=== PATIENT | male | born 1960 | race Caucasian/White ===

== ENCOUNTER 2021-05-02 03:49 | Emergency (ER) | payer OTHER ==
[~2021-05-02] VITALS: Ht 170.2 cm; Wt 86.4 kg
[2021-05-02 03:53] VITALS: TEMP 98
[2021-05-02 04:02] LABS: HEMATOCRIT 47.7 % (42.0-52.0); HEMOGLOBIN 16.9 g/dl (13.5-18.0); MEAN CELL VOLUME 90 fl (80.0-100.0); MEAN CORPUSCULAR HEMOGLOBIN 32 pg (27.0-31.0); MEAN CORPUSCULAR HGB CONC 35 g/dl (33.0-37.0); MEAN PLATELET VOLUME 11.3 fl (7.4-10.4); PLATELET COUNT 272 K/mm3 (130-400); RED BLOOD COUNT 5.31 M/mm3 (4.20-5.60)
[2021-05-02 04:18] LABS: PARTIAL THROMBOPLASTIN TIME 29.5 SECONDS (26.0-37.0)
[2021-05-02 04:20] LABS: INR 1.1 (0.8-3.0); PROTHROMBIN TIME 12.3 SECONDS (9.7-12.8)
[2021-05-02 04:23] LABS: BILIRUBIN,TOTAL 0.4 mg/dL (0.2-1.2); CALCIUM 9.2 mg/dL (8.4-10.2); CREATININE, serum 1.17 mg/dL (0.72-1.25); POTASSIUM 3.4 mmol/L (3.5-4.5); TOTAL PROTEIN 7.7 gm/dL (6.2-8.1)
[2021-05-02 04:29] LABS: BAND 4 % (0-10); EOSINOPHIL 2 % (0-4); NEUTROPHILS 50 % (42.0-75.2); TROPONIN-I 0.399 ng/mL (0.00-0.033)
[2021-05-02 04:30] LABS: LYMPHOCYTE 38 % (20.0-51.0)
[2021-05-02 04:31] LABS: PLATELET ESTIMATE NORMAL (NORMAL)
[2021-05-02 05:17] VITALS: BP 136/96; PULSE 89
== END 2021-05-02 05:18 | disposition short-term general hospital (02) ==
LOC: COL.ER 03:49
PROVIDERS: Emergency Medicine
DX: I21.3 ST elevation (STEMI) myocardial infarction of unspecified site (principal); Z20.822 Contact with and (suspected) exposure to COVID-19
CPT/HCPCS: J1644; J3101; J7050

== ENCOUNTER 2021-06-05 12:15 | Outpatient (RCR) | payer OTHER | END 2021-06-07 | disposition home or self-care (01) | LOC: COL.CR | DX: Z48.812 Encounter for surgical aftercare following surgery on the circulatory system (principal); Z95.5 Presence of coronary angioplasty implant and graft; I21.3 ST elevation (STEMI) myocardial infarction of unspecified site ==

== ENCOUNTER 2021-06-26 15:03 | Outpatient (RCR) | payer OTHER | END 2021-07-03 07:21 | disposition home or self-care (01) | LOC: COL.CR 15:03 | DX: Z02.89 Encounter for other administrative examinations (principal); Z48.812 Encounter for surgical aftercare following surgery on the circulatory system; Z95.5 Presence of coronary angioplasty implant and graft ==